=== PATIENT | female | born 1970 | race African-American/Black ===

== ENCOUNTER 2024-01-13 13:33 | Outpatient (CLI) | payer OTHER | END 2024-01-13 13:34 | disposition home or self-care (01) | LOC: CSHMAMMO 13:33 | PROVIDERS: ATTEND Nurse Practitioner Family | DX: Z12.31 Encounter for screening mammogram for malignant neoplasm of breast (principal); N64.89 Other specified disorders of breast | CPT/HCPCS: 77067 ==

== ENCOUNTER 2024-01-13 14:14 | Outpatient (CLI) | payer OTHER | END 2024-01-13 14:15 | disposition home or self-care (01) | LOC: CSHRAD 14:14 | PROVIDERS: ATTEND Nurse Practitioner Family | DX: S83.92XA Sprain of unspecified site of left knee, initial encounter (principal) ==

== ENCOUNTER 2024-02-15 09:06 | Outpatient (CLI) | payer OTHER | END 2024-02-15 09:07 | disposition home or self-care (01) | LOC: CSHMAMMO 09:06 | PROVIDERS: ATTEND Nurse Practitioner Family | DX: N64.89 Other specified disorders of breast (principal) | CPT/HCPCS: G0279 ==